=== PATIENT | male | born 1985 | race American Indian/Alaskan Native ===

== ENCOUNTER 2021-10-08 22:32 | Emergency (ER) | payer SELFPAY ==
[2021-10-09] MEDS ORDERED: INSULIN REGULAR, HUMAN 100 UNITS/1 ML IV ONE (01:47)
[2021-10-09] MEDS ORDERED: ONDANSETRON 4 MG/2 ML INJ IV ONE (01:47)
[2021-10-09] MEDS ORDERED: SODIUM CHLORIDE 0.9% 1000 ML 1,000 ML IV ONE (01:47)
--- NOTE | 2021-10-09 01:50 | Emergency Department Report ---
- General Chief complaint: Hyperglycemia Stated complaint: HIGH GLUCOSE Time Seen by Provider: 10/09/21 01:39 Source: patient Mode of arrival: Ambulatory Limitations: No Limitations - History of Present Illness Initial comments: 35-year-old male with a past medical history noninsulin-dependent diabetes and asthma presents to the hospital complaining of hyperglycemia, intermittent nausea, vomiting, and generalized weakness since running out of his Metformin 3 days ago. Patient typically takes Metformin 500 mg twice daily. States glucoses were running higher than normal. He has been experiencing increased thirst and urination. He has been drinking water. He denies abdominal pain, dysuria, or fever. - Related Data Previous Rx's Medication Instructions Recorded Last Taken Type Nitrofurantoin [place]/M-[place]ryst 100 mg PO Q12HR #10 capsule 10/09/21 Unknown Rx [Macrobid CAP] metFORMIN [Glucophage] 500 mg PO BID #60 tab 10/09/21 Unknown Rx Allergies Allergy/AdvReac Type Severity Reaction Status Date / Time No Known Allergies Allergy Unverified 10/09/21 01:00 ED Review of Systems ROS: Stated complaint: HIGH GLUCOSE Other details as noted in HPI Comment: All other systems reviewed and negative ED Past Medical Hx - Past Medical History Previous Medical History?: Yes Hx Diabetes: Yes Hx Asthma: Yes - Surgical History Past Surgical History?: No - Social History Smoking Status: Current Every Day Smoker Substance Use Type: None - Medications Home Medications: Home Medications Medication Instructions Recorded Confirmed Last Taken Type Nitrofurantoin [place]/M-[place]ryst 100 mg PO Q12HR #10 capsule 10/09/21 Unknown Rx [Macrobid CAP] metFORMIN [Glucophage] 500 mg PO BID #60 tab 10/09/21 Unknown Rx ED Physical Exam - General Limitations: No Limitations - Other Other exam information: General: No acute distress Head: Atraumatic Eyes: normal appearance ENT: Moist mucous membranes Neck: Normal appearance, no midline tenderness Chest: Clear to auscultation bilaterally CV: Regular rate and rhythm Abdomen: Soft, normal bowel sounds, nontender, nondistended, no rebound or guarding Back: Normal inspection Extremity: Normal inspection, full range of motion Neuro: Alert O x 3, no facial asymmetry, speech clear, no gross motor sensory deficit Psych: Appropriate behavior Skin: No rash ED Course Vital Signs 10/09/21 00:30 Temperature 98.4 F Pulse Rate 71 Respiratory 18 Rate Blood Pressure 131/93 O2 Sat by Pulse 98 Oximetry ED Medical Decision Making - Lab Data Result diagrams: 10/09/21 02:05 10/09/21 02:05 - Medical Decision Making 35-year-old male presents to the hospital hyperglycemia secondary to medication noncompliance. Patient endorses signs of dehydration with nausea. Patient treated with Zofran, normal saline, and insulin with improvement in symptoms and glucose. His Metformin will be restarted outpatient follow-up recommended Patient has signs of UTI/cystitis based on UA result. He was treated for gonorrhea and chlamydia empirically and will be discharged with antibiotics for UTI - Differential Diagnosis Hyperglycemia, DKA, infection Critical Care Time: No Critical care attestation.: If time is entered above; I have spent that time in minutes in the direct care of this critically ill patient, excluding procedure time. ED Disposition Clinical Impression: Hyperglycemia due to diabetes mellitus, Noncompliance with medication regimen, UTI (urinary tract infection) Disposition: HOME / SELF CARE / HOMELESS Is pt being admited?: No Does the pt Need Aspirin: No Condition: Stable Instructions: Diabetes Mellitus Type 2 in Adults (ED), Type 2 Diabetes Mellitus, Self Care, Adult, Urinary Tract Infection, Adult, [id number], Hyperglycemia, [id number] Additional Instructions: Take the medication as prescribed. Follow-up with your doctor or doctor/clinic provided. Return if symptoms worsen as indicated by your discharge instructions. Prescriptions: metFORMIN [Glucophage] 500 mg PO BID #60 tab Nitrofurantoin [place]/M-[place] [Macrobid CAP] 100 mg PO Q12HR #10 capsule Referrals: [facility] [Provider Group] - 3-5 Days IRENE LOU MD [Staff Physician] - 3-5 Days
[2021-10-09 02:45] LABS: Alanine Aminotransferase 50 units/L (7-56); BUN/Creatinine Ratio 13; Blood Urea Nitrogen 12 mg/dL (9-20); Calcium 10.2 mg/dL (8.4-10.2); Hemolysis Index 5
[2021-10-09 02:47] LABS: Basophils # (Auto) 0.1 K/mm3 (0.0-0.1); Basophils % (Auto) 0.6 % (0.0-1.8); Eosinophils # (Auto) 0.1 K/mm3 (0.0-0.4); Eosinophils % (Auto) 1.2 % (0.0-4.3); Hematocrit 54.6 % (35.5-45.6); Hemoglobin 18.2 gm/dl (11.8-15.2); Lymphocytes # (Auto) 3.5 K/mm3 (1.2-5.4); Mean Corpuscular HGB Conc 33 % (32-34); Mean Corpuscular Volume 87 fl (84-94); Monocytes # (Auto) 0.5 K/mm3 (0.0-0.8); Monocytes % (Auto) 5.1 % (0.0-7.3); Platelet Count 281 K/mm3 (140-440); Red Blood Count 6.28 M/mm3 (3.65-5.03); Red Cell Distribution Width 12.9 % (13.2-15.2)
[2021-10-09 04:05] LABS: Bacteria,Urine 1+ /HPF (Negative); Bilirubin,Urine NEG (Negative); Blood,Urine SM (Negative); Color,Urine Yellow (Yellow); Mucus,Urine FEW /HPF
[2021-10-09 04:06] LABS: RBC,Urine > 182.0 /HPF (0.0-6.0)
[2021-10-09] MEDS ORDERED: cefTRIAXone/NS 1 GM/50 ML 1 GM/50 ML BAG IV ONE (04:48)
[2021-10-09] MEDS ORDERED: AZITHROMYCIN 250 MG TAB PO ONE (04:49)
[2021-10-09 06:16] VITALS: BP 112/72
== END 2021-10-09 06:12 | disposition home or self-care (01) ==
LOC: ED 22:32
DX: E11.65 Type 2 diabetes mellitus with hyperglycemia (principal); N39.0 Urinary tract infection, site not specified; Z91.14 Patient's other noncompliance with medication regimen
CPT/HCPCS: 36415; 80053; 81001; 82805; 82962; 85025; 96361; 96365; 96375; 99283; J0696; J2405; J7030; Q0162; Q9967; J1815